=== PATIENT | male | born 1950 | race Caucasian/White ===

== ENCOUNTER 2020-07-31 16:18 | Emergency (ER) | payer BC, OTHER ==
--- NOTE | 2020-07-31 17:35 | RAD REPORT ---
EXAM DESCRIPTION: RAD - Knee Right 3 View - 07/31/2020 5:05 pm CLINICAL HISTORY: Pain;Swelling COMPARISON: No comparisons FINDINGS: Severe osteoarthritis involves the medial joint compartment. There is [id number] noted. Moderate suprapatellar joint effusion is seen. No fracture suspected.
[2020-07-31] MEDS ORDERED: LIDOCAINE 1% W/EPI 1:100,000 MDV 20 ML VIAL ONE (18:52)
[2020-07-31] MEDS ORDERED: KETOROLAC 30 MG/ML INJ ONE (18:52)
[2020-07-31] MEDS ORDERED: NA CHLORIDE 0.9% 1,000 ML ONE (18:52)
[2020-07-31 18:58] LABS: Absolute Lymphocytes (CBC) 1.2 K/uL (0.7-4.9); Basophils % 0.3 % (0-1.3); Hematocrit 37.6 % (39.6-49.0); Lymphocytes % 12.2 % (15.3-44.8); RBC Red Blood Cell Count 3.99 M/uL (4.33-5.43)
[2020-07-31 19:19] LABS: Albumin 3.9 g/dL (3.4-5.0); Potassium 4.2 mmol/L (3.5-5.1); Protein, Total 7.8 g/dL (6.4-8.2); Uric Acid 7.6 mg/dL (3.5-7.2)
[2020-07-31 19:36] LABS: White Blood Cell Scan OK (OK)
--- NOTE | 2020-07-31 19:36 | RAD REPORT ---
EXAM DESCRIPTION: US - Extremity Venous Uni Ltd - 07/31/2020 7:27 pm CLINICAL HISTORY: Pain;Swelling Leg swelling and edema. COMPARISON: No comparisons FINDINGS: Right lower extremity venous system was interrogated with Doppler technique. Normal flow, compressibility and augmentation was noted. There is no DVT present. IMPRESSION: No evidence of right lower extremity deep venous thrombosis.
[2020-07-31 19:37] LABS: Blood Morphology Comment NOT SEEN (NOT SEEN); Platelet Estimate DECR
[2020-07-31] MEDS ORDERED: MORPHINE 2 MG/ML SYR ONE ×2 (19:54→22:07)
[2020-07-31] MEDS ORDERED: ONDANSETRON 4 MG/2 ML VIAL ONE (19:54)
[2020-07-31] MEDS ORDERED: COLCHICINE 0.6 MG TAB ONE (19:55)
[2020-07-31 21:41] LABS: Appearance TURBID (CLEAR); Body Fluid Source SYNOVIAL; Body Fluid WBC 23800 /mm^3; Color of fluid Yellow (COLORLESS)
--- NOTE | 2020-07-31 21:44 | EDPHYS ---
Physician Documentation [facility] Name: Melo Richardson Age: 70 yrs Sex: Male : 1950 Arrival Date: 07/31/2020 Time: 16:23 Bed 15 Private MD: YADIEL Physician Uriel Alarcon HPI: 07/31 18:34 This 70 yrs old Male presents to ER via Wheelchair with complaints of Knee anu Pain - Sent by Celestina. 18:34 The patient presents with decreased range of motion, pain. The complaints affect the anu right knee. Context: resulted from twisting of the extremity, the patient can partially bear weight. Onset: The symptoms/episode began/occurred 5 day(s) ago. Modifying factors: The symptoms are alleviated by nothing. elevating leg, remaining still, the symptoms are aggravated by weight bearing, bending knee. Associated signs and symptoms: The patient has no apparent associated signs or symptoms. Treatment prior to arrival includes: no previous treatment. Severity of symptoms: At their worst the symptoms were moderate, in the emergency department the symptoms are unchanged. The patient has not experienced similar symptoms in the past. Historical: - Allergies: 16:42 No Known Allergies; hb - Home Meds: 16:42 None [Active]; hb - PMHx: 16:42 thrombocytopenia; Gout; hb - PSHx: 16:42 Knee - Right; hb - Immunization history:: Adult Immunizations up to date. - Social history:: Smoking status: Patient denies any tobacco usage or history of. - Family history:: not pertinent. ROS: 18:34 Constitutional: Negative for fever, chills, and weight loss, Eyes: Negative for injury, anu pain, redness, and discharge, ENT: Negative for injury, pain, and discharge, Neck: Negative for injury, pain, and swelling, Cardiovascular: Negative for chest pain, palpitations, and edema, Respiratory: Negative for shortness of breath, cough, wheezing, and pleuritic chest pain, Abdomen/GI: Negative for abdominal pain, nausea, vomiting, diarrhea, and constipation, Back: Negative for injury and pain, : Negative for injury, bleeding, discharge, and swelling, Skin: Negative for injury, rash, and discoloration, Neuro: Negative for headache, weakness, numbness, tingling, and seizure, Psych: Negative for depression, anxiety, suicide ideation, homicidal ideation, and hallucinations, Allergy/Immunology: Negative for hives, rash, and allergies, Endocrine: Negative for neck swelling, polydipsia, polyuria, polyphagia, and marked weight changes. 18:34 MS/extremity: Positive for decreased range of motion, pain, swelling, tenderness, of the right knee. Exam: 18:34 Constitutional: This is a well developed, well nourished patient who is awake, alert, anu and in no acute distress. Head/Face: Normocephalic, atraumatic. Eyes: Pupils equal round and reactive to light, extra-ocular motions intact. Lids and lashes normal. Conjunctiva and sclera are non-icteric and not injected. Cornea within normal limits. Periorbital areas with no swelling, redness, or edema. ENT: Nares patent. No nasal discharge, no septal abnormalities noted. Tympanic membranes are normal and external auditory canals are clear. Oropharynx with no redness, swelling, or masses, exudates, or evidence of obstruction, uvula midline. Mucous membranes moist. Neck: Trachea midline, no thyromegaly or masses palpated, and no cervical lymphadenopathy. Supple, full range of motion without nuchal rigidity, or vertebral point tenderness. No Meningismus. Chest/axilla: Normal chest wall appearance and motion. Nontender with no deformity. No lesions are appreciated. Cardiovascular: Regular rate and rhythm with a normal S1 and S2. No gallops, murmurs, or rubs. Normal PMI, no JVD. No pulse deficits. Respiratory: Lungs have equal breath sounds bilaterally, clear to auscultation and percussion. No rales, rhonchi or wheezes noted. No increased work of breathing, no retractions or nasal flaring. Abdomen/GI: Soft, non-tender, with normal bowel sounds. No distension or tympany. No guarding or rebound. No evidence of tenderness throughout. Back: No spinal tenderness. No costovertebral tenderness. Full range of motion. Male : Normal genitalia with no discharge or lesions. Skin: Warm, dry with normal turgor. Normal color with no rashes, no lesions, and no evidence of cellulitis. Neuro: Awake and alert, GCS 15, oriented to person, place, time, and situation. Cranial nerves II-XII grossly intact. Motor strength 5/5 in all extremities. Sensory grossly intact. Cerebellar exam normal. Normal gait. Psych: Awake, alert, with orientation to person, place and time. Behavior, mood, and affect are within normal limits. 18:34 Musculoskeletal/extremity: Extremities: grossly normal except: noted in the right knee: decreased ROM, pain, swelling, tenderness, ROM: full passive range of motion, limited active range of motion due to pain, limited passive range of motion due to pain, Circulation is intact in all extremities. Sensation intact. Compartment Syndrome exam of affected extremity: is normal. Joints: All joints are normal except the right knee displays effusion, limited range of motion, pain at rest, painful range of motion, swelling, tenderness, DVT Exam: negative Homans' sign noted on exam, no appreciated bluish discoloration, no erythema, no increased warmth, pain, swelling, tenderness. Vital Signs: 16:38 BP 137 / 93; Pulse 57; Resp 16; Temp 99.9; Pulse Ox 98% on R/A; Pain 10/10; hb 18:30 BP 143 / 76; Pulse 85; Resp 16; Pulse Ox 100% ; bp 19:40 BP 138 / 71; Pulse 89; Resp 16; Pulse Ox 98% ; sf 20:00 BP 129 / 70; Pulse 80; Resp 16; Pulse Ox 96% ; sf 20:30 BP 125 / 72; Pulse 75; Resp 16; Pulse Ox 94% ; sf 21:00 BP 134 / 73; Pulse 74; Resp 16; Pulse Ox 93% ; sf 21:30 BP 118 / 69; Pulse 71; Resp 16; Pulse Ox 94% ; sf Procedures: 19:15 Joint Treatment: Aspiration of right knee using 18 gauge needle, Lidocaine, Removed anu clear fluid, yellow fluid, Dressed with band aid, Neosporin, Patient tolerated well. medial approach, 90 cc of synovial fluid aspirated and sent to lab. MDM: 18:13 Patient medically screened. anu 18:37 Differential diagnosis: dislocation, contusion, abrasion, tendonitis. Data reviewed: [facility] vital signs, nurses notes, lab test result(s), radiologic studies, plain films. Data interpreted: school lunch monitor: rate is 57 beats/min, rhythm is regular, Pulse oximetry: on room air is 98 %. Test interpretation: by ED physician or midlevel provider: plain radiologic studies. Counseling: I had a detailed discussion with the patient and/or guardian regarding: the historical points, exam findings, and any diagnostic results supporting the discharge/admit diagnosis, lab results, radiology results, the need for outpatient follow up, for definitive care, a orthopedic surgeon. 07/31 18:28 Order name: CBC with Diff; Complete Time: 20:13 [facility] 07/31 18:28 Order name: Comprehensive Metabolic Panel; Complete Time: 19:20 [facility] 07/31 18:28 Order name: Uric Acid; Complete Time: 19:20 [facility] 07/31 19:35 Order name: Body Fluid Crystals; Complete Time: 20:50 [facility] 07/31 19:35 Order name: LDH, PLEURAL FLUID [facility] 07/31 19:36 Order name: CBC Smear Scan; Complete Time: 20:13 [facility] 07/31 16:47 Order name: Knee Right 3 View XRAY; Complete Time: 19:16 07/31 18:28 Order name: US Extremity Venous Unilateral Ltd; Complete Time: 20:13 [facility] 07/31 20:09 Order name: Body Fluid Cell Count; Complete Time: 21:43 [facility] 07/31 20:09 Order name: Body Fluid Culture [facility] 07/31 18:28 Order name: Dressing - Wound; Complete Time: 18:47 [facility] 07/31 18:28 Order name: Gloves, Sterile; Complete Time: 18:47 [facility] 07/31 18:28 Order name: Setup Suture Tray; Complete Time: 18:47 [facility] 07/31 19:23 Order name: Knee Immobilizer; Complete Time: 22:09 [facility] 07/31 19:23 Order name: Ice pack; Complete Time: 19:45 [facility] Administered Medications: 18:40 Drug: NS 0.9% 1000 ml Route: IV; Rate: 125 ml/hr; Site: left hand; bp 20:47 Follow up: Response: No adverse reaction; IV Status: Completed infusion; IV Intake: sf 1000ml 18:40 Drug: TORadol (ketorolac) 30 mg Route: IVP; Site: left hand; bp 19:12 Follow up: Response: No adverse reaction sf 18:40 Drug: Lidocaine-Epinephrine -1%: (1:100,000) 10 ml Volume: 20 ml; Route: Infiltration; bp 19:43 Drug: colchicine 1.2 mg Route: PO; sf 20:48 Follow up: Response: No adverse reaction sf 19:44 Drug: Zofran (Ondansetron) 4 mg Route: IVP; Site: right hand; sf 20:48 Follow up: Response: No adverse reaction sf 19:45 Drug: morphine 2 mg Route: IVP; Site: right hand; sf 20:48 Follow up: Response: No adverse reaction; Pain is decreased sf 20:47 Drug: colchicine 0.6 mg Route: PO; sf 21:46 Follow up: Response: No adverse reaction sf 22:00 Drug: morphine 2 mg Route: IVP; Site: right hand; sf 22:11 Follow up: Response: No adverse reaction; Pain is decreased sf Disposition: 21:43 Chart complete. [facility] Disposition: 07/31/20 21:44 Discharged to Home. Impression: Effusion, right knee, Osteoarthritis of knee - right knee severe, Thrombocytopenia, unspecified, Edema, unspecified. - Condition is Stable. - Discharge Instructions: Edema, Gout, Knee Effusion, Thrombocytopenia, Knee Arthrocentesis, Cryotherapy, Skpe-ry-Fqyd, Edema, Xcrx-tt-Aatr, Knee Effusion, Rfxg-ex-Klve, Gout, Ksht-az-Hqum, Cryotherapy, Thrombocytopenia, Dqvo-qh-Nwcu, Peripheral Edema. - Prescriptions for Tylenol- Codeine #3 300-30 mg Oral Tablet - take 2 tablet by ORAL route every 4-6 hours As needed; 30 tablet. Diclofenac Sodium 75 mg Oral Tablet, Delayed Release (E.C.) - take 1 tablet by ORAL route 2 times per day; 20 tablet. Medrol (Tin) 4 mg Oral Tablets, Dose Pack - take 1 tablet by ORAL route as directed - follow package instructions; 1 packet. Colchicine- Probenecid 0.5-500 mg Oral Tablet - take 1 tablet by ORAL route every 1 hour up to 3 hours; 3 tablet. - Medication Reconciliation Form, Thank You Letter, Antibiotic Education, Prescription Opioid Use form. - Follow up: Private Physician; When: 2 - 3 days; Reason: Recheck today's complaints, Continuance of care, Re-evaluation by your physician. Follow up: Fadi Valles; When: 2 - 3 days; Reason: Recheck today's complaints, Re-evaluation by your physician. - Problem is new. - Symptoms have improved. Addendum: 08/02/2020 08:11 Co-signature as Attending Physician, Uriel Alarcon MD I agree with the assessment and c pham plan of care. Signatures: Dispatcher [employer] Uriel Estrada MD MD cha Mickail, Joel, PA PA jmm Baxter, Heather, SHANAE RN Frederic Cervantes RN RN Fadi Wagoner RN RN sf Corrections: (The following items were deleted from the chart) 07/31 21:45 19:23 Crutches ordered. anu sf 22:21 21:44 07/31/2020 21:44 Discharged to Home. Impression: Effusion, right knee; sf Osteoarthritis of knee - right knee severe; Thrombocytopenia, unspecified; Edema, unspecified. Condition is Stable. Discharge Instructions: Edema, Knee Effusion, Thrombocytopenia, Knee Arthrocentesis, Cryotherapy, Sddz-xv-Wglq, Edema, Khbl-ef-Yrel, Knee Effusion, Hvjq-uj-Cykv, Cryotherapy, Thrombocytopenia, Xhcg-jz-Hltn, Peripheral Edema, Gout, Gout, Rent-ht-Pjls. Prescriptions for Tylenol-Codeine #3 300-30 mg Oral Tablet - take 2 tablet by ORAL route every 4-6 hours As needed; 30 tablet, Diclofenac Sodium 75 mg Oral Tablet, Delayed Release (E.C.) - take 1 tablet by ORAL route 2 times per day; 20 tablet, Medrol (Tin) 4 mg Oral Tablets, Dose Pack - take 1 tablet by ORAL route as directed - follow package instructions; 1 packet, Colchicine-Probenecid 0.5-500 mg Oral Tablet - take 1 tablet by ORAL route every 1 hour up to 3 hours; 3 tablet. and Forms are Medication Reconciliation Form, Thank You Letter, Antibiotic Education, Prescription Opioid Use. Follow up: Private Physician; When: 2 - 3 days; Reason: Recheck today's complaints, Continuance of care, Re-evaluation by your physician. Follow up: Fadi Valles; When: 2 - 3 days; Reason: Recheck today's complaints, Re-evaluation by your physician. Problem is new. Symptoms have improved. courtney
--- NOTE | 2020-07-31 21:44 | ER ---
Nurse's Notes [facility] Name: Melo Richardson Age: 70 yrs Sex: Male : 1950 Arrival Date: 07/31/2020 Time: 16:23 Bed 15 Private MD: Diagnosis: Effusion, right knee;Osteoarthritis of knee-right knee severe;Thrombocytopenia, unspecified;Edema, unspecified Presentation: 07/31 16:38 Chief complaint: Right knee pain, swelling, and swelling [address] by [address] Oscar. Coronavirus screen: At this time, the client does not indicate any symptoms associated with coronavirus-19. Ebola Screen: No symptoms or risks identified at this time. Initial Sepsis Screen: Does the patient meet any 2 criteria? No. Patient's initial sepsis screen is negative. Does the patient have a suspected source of infection? No. Patient's initial sepsis screen is negative. Risk Assessment: Do you want to hurt yourself or someone else? Patient reports no desire to harm self or others. Onset of symptoms was July 29, 2020. 16:38 Acuity: MAGDA 3 hb 16:38 Method Of Arrival: Wheelchair Triage Assessment: 18:15 General: Appears distressed, uncomfortable, Behavior is cooperative, appropriate for bp age, anxious. Pain: Complains of pain in right knee. EENT: No deficits noted. Neuro: No deficits noted. Cardiovascular: No deficits noted. Respiratory: No deficits noted. GI: No signs and/or symptoms were reported involving the gastrointestinal system. : No signs and/or symptoms were reported regarding the genitourinary system. Derm: No deficits noted. Musculoskeletal: Swelling present in right knee. Historical: - Allergies: 16:42 No Known Allergies; hb - Home Meds: 16:42 None [Active]; hb - PMHx: 16:42 thrombocytopenia; Gout; hb - PSHx: 16:42 Knee - Right; hb - Immunization history:: Adult Immunizations up to date. - Social history:: Smoking status: Patient denies any tobacco usage or history of. - Family history:: not pertinent. Screenin:15 Abuse screen: Denies threats or abuse. Denies injuries from another. Nutritional bp screening: No deficits noted. Tuberculosis screening: No symptoms or risk factors identified. Fall Risk None identified. Assessment: 18:15 General: SEE TRIAGE NOTE. bp 19:15 General: Appears in no apparent distress. comfortable, Behavior is calm, cooperative. sf Pain: Complains of pain in right knee Pain currently is 6 out of 10 on a pain scale. Neuro: No deficits noted. Cardiovascular: No deficits noted. Respiratory: No deficits noted. GI: No deficits noted. : No deficits noted. Derm: No deficits noted. Musculoskeletal: Circulation, motion, and sensation intact. Swelling present in right knee Reports pain in right knee. 20:48 Reassessment: Patient appears in no apparent distress at this time. No changes from sf previously documented assessment. Patient and/or family updated on plan of care and expected duration. Pain level reassessed. Patient is alert, oriented x 3, equal unlabored respirations, skin warm/dry/pink. 21:46 Reassessment: Patient refuses crutches stating "I have some". sf Vital Signs: 16:38 BP 137 / 93; Pulse 57; Resp 16; Temp 99.9; Pulse Ox 98% on R/A; Pain 10/10; hb 18:30 BP 143 / 76; Pulse 85; Resp 16; Pulse Ox 100% ; bp 19:40 BP 138 / 71; Pulse 89; Resp 16; Pulse Ox 98% ; sf 20:00 BP 129 / 70; Pulse 80; Resp 16; Pulse Ox 96% ; sf 20:30 BP 125 / 72; Pulse 75; Resp 16; Pulse Ox 94% ; sf 21:00 BP 134 / 73; Pulse 74; Resp 16; Pulse Ox 93% ; sf 21:30 BP 118 / 69; Pulse 71; Resp 16; Pulse Ox 94% ; sf ED Course: 16:23 Patient arrived in ED. ds1 16:41 Triage completed. hb 16:42 Arm band placed on. hb 17:04 Knee Right 3 View XRAY In Process Unspecified. EDMS 18:13 Uriel Alarcon MD is Attending Physician. anu 18:15 Patient has correct armband on for positive identification. Bed in low position. Call bp light in reach. Side rails up X2. 18:25 Frederic Rodriguez, SHANAE is Primary Nurse. bp 18:40 Inserted saline lock: 22 gauge in left hand, using aseptic technique. Blood collected. bp 19:05 Assist provider with aspiration of right knee of using 18 gauge needle, fluid removed mh5 was yellow, Removed 80 ml's of fluid Set up for procedure. Performed by Uriel Alarcon MD Dressed with band aid, Neosporin, Patient tolerated well. 19:12 US Extremity Venous Unilateral Ltd Sent. sf 19:27 US Extremity Venous Unilateral Ltd In Process Unspecified. EDMS 19:31 Quinton Richmond PA is PHCP. jmm 20:48 Primary Nurse role handed off by Frederic Rodriguez, RN sf 20:48 Fadi Marroquin, SHANAE is Primary Nurse. sf 21:44 Fadi Valles MD is Referral Physician. jmm 22:00 Knee immobilizer applied on right knee. sf 22:15 IV discontinued, intact, bleeding controlled, No redness/swelling at site. Pressure sf dressing applied. Administered Medications: 18:40 Drug: NS 0.9% 1000 ml Route: IV; Rate: 125 ml/hr; Site: left hand; bp 20:47 Follow up: Response: No adverse reaction; IV Status: Completed infusion; IV Intake: sf 1000ml 18:40 Drug: TORadol (ketorolac) 30 mg Route: IVP; Site: left hand; bp 19:12 Follow up: Response: No adverse reaction sf 18:40 Drug: Lidocaine-Epinephrine -1%: (1:100,000) 10 ml Volume: 20 ml; Route: Infiltration; bp 19:43 Drug: colchicine 1.2 mg Route: PO; sf 20:48 Follow up: Response: No adverse reaction sf 19:44 Drug: Zofran (Ondansetron) 4 mg Route: IVP; Site: right hand; sf 20:48 Follow up: Response: No adverse reaction sf 19:45 Drug: morphine 2 mg Route: IVP; Site: right hand; sf 20:48 Follow up: Response: No adverse reaction; Pain is decreased sf 20:47 Drug: colchicine 0.6 mg Route: PO; sf 21:46 Follow up: Response: No adverse reaction sf 22:00 Drug: morphine 2 mg Route: IVP; Site: right hand; sf 22:11 Follow up: Response: No adverse reaction; Pain is decreased sf Intake: 20:47 IV: 1000ml; Total: 1000ml. sf Outcome: 21:44 Discharge ordered by . [facility] 22:05 Discharged to home via wheelchair. sf 22:05 Condition: stable 22:05 Discharge instructions given to patient, family, Instructed on discharge instructions, sf follow up and referral plans. medication usage, wound care, Demonstrated understanding of instructions, follow-up care, medications, wound care, Prescriptions given X 4. 22:21 Patient left the ED. sf Signatures: Dispatcher [employer] EDUriel Miller MD MD cha Mickail, Joel, PA PA Fe Claudio ds1 Bertha Brennan, SHANAE RN Radha Gonsalez [facility] Frederic Rodriguez RN RN bp Fitzpatrick, Steven, RN RN sf
[2020-07-31 22:28] VITALS: TEMP 99.9
[2020-07-31 22:31] VITALS: BP 138/71; O2SAT 98
== END 2020-07-31 22:21 | disposition home or self-care (01) ==
LOC: ER 16:18
PROC: 0S9C3ZZ Drainage of Right Knee Joint, Percutaneous Approach (ICD-10-PCS; principal; 2020-07-31)
DX: M17.11 Unilateral primary osteoarthritis, right knee (principal); M25.461 Effusion, right knee; D69.6 Thrombocytopenia, unspecified; M10.9 Gout, unspecified
CPT/HCPCS: 87070; 85025; 36415; 89050; 83615; 84550; 80053; 89060; 73562; 93971; 99284; 20610; J2270 ×2; J7030; J2405